=== PATIENT | male | born 2000 | race Caucasian/White ===

== ENCOUNTER → 2020-09-30 | Outpatient (CLI) | payer BC ==
[~2020-09-30] MED LIST: CYCLOBENZAPRINE10 MG PO
[2020-09-30 13:57] LABS: BUN/CREATININE RATIO 19 (0-10)
== END ==
LOC: LAB 12:29
PROVIDERS: Emergency Medicine
DX: E10.9 Type 1 diabetes mellitus without complications (principal)
CPT/HCPCS: 36415; 80053; 80061; 82043; 83036; 84439; 84443

== ENCOUNTER → 2021-06-05 | Outpatient (CLI) | payer BC ==
[2021-06-05 17:06] LABS: BUN/CREATININE RATIO 15 (0-10)
== END ==
LOC: LAB 16:19
PROVIDERS: Emergency Medicine
DX: E10.9 Type 1 diabetes mellitus without complications (principal)
CPT/HCPCS: 80053; 83036

== ENCOUNTER 2021-10-09 16:20 | Emergency (ER) | payer OTHER ==
[2021-10-09] MEDS ORDERED: AUGMENTIN 500-500 MG PO (17:22)
== END 2021-10-09 17:40 | disposition home or self-care (01) ==
LOC: ER1 16:20
DX: S81.851A Open bite, right lower leg, initial encounter (principal); Z23 Encounter for immunization; E11.9 Type 2 diabetes mellitus without complications; W54.0XXA Bitten by dog, initial encounter
CPT/HCPCS: 90471; 90715; 99283

== ENCOUNTER → 2021-10-13 | Outpatient (CLI) | payer BC ==
[~2021-10-13] MED LIST changes: +AUGMENTIN 500-500 MG PO
[2021-10-13 10:31] LABS: BUN/CREATININE RATIO 22 (0-10)
== END ==
LOC: LAB 09:17
PROVIDERS: Emergency Medicine
DX: E10.9 Type 1 diabetes mellitus without complications (principal); R53.82 Chronic fatigue, unspecified
CPT/HCPCS: 36415; 80053; 80061; 82043; 83036; 84443

== ENCOUNTER → 2022-02-16 | Outpatient (CLI) | payer BC ==
[2022-02-16 18:19] LABS: BUN/CREATININE RATIO 19 (0-10)
== END ==
LOC: LAB 17:01
PROVIDERS: Emergency Medicine
DX: E10.9 Type 1 diabetes mellitus without complications (principal); R53.82 Chronic fatigue, unspecified
CPT/HCPCS: 80053; 80061; 82043; 83036; 84443

== ENCOUNTER 2022-04-11 20:11 | Emergency (ER) | payer BC ==
[2022-04-11 20:46] LABS: HEMOGLOBIN 16.5 gm/dl (14.0-17.5); RED BLOOD COUNT 5.16 M/UL (4.20-5.50)
[2022-04-11 21:10] LABS: BUN/CREATININE RATIO 16 (0-10)
[2022-04-12] MEDS ORDERED: ZOFRAN 4 MG TAB4 MG PO (01:17)
== END 2022-04-12 01:43 | disposition home or self-care (01) ==
LOC: ER1 20:11
PROVIDERS: Emergency Medicine
DX: E10.65 Type 1 diabetes mellitus with hyperglycemia (principal); E86.0 Dehydration; R19.7 Diarrhea, unspecified; Z88.6 Allergy status to analgesic agent; Z88.8 Allergy status to other drugs, medicaments and biological substances
CPT/HCPCS: 36600; 80053; 81001; 82009; 82803; 82962; 83690; 85025; 96361; 96374; 99284; J2405; Q9967